=== PATIENT | male | born 1950 | race Caucasian/White ===

== ENCOUNTER → 2021-01-08 | Outpatient (CLI) | payer OTHER ==
[~2021-01-08] MED LIST: ACET325T14 PO; AMIT10TA PO; BUPR1TAB44 SL; CALCIUM CARBONATE PO; CINNAMON PO; FERR324T5 PO; FLUT9.9S NAS; GABA-827 PO; GLARGINE SC; LORA-247 PO; MAGNESIUM PO; METF500T17 PO; METH-639 PO; OMEP-110 PO; SEMA1PEN3 SC; SERT100T32 PO; SIMV20TA19 PO; TAMS-11 PO
[2021-01-08 15:10] LABS: BASOPHILS % (AUTO) 0 % (0-1); EOSINOPHILS % (AUTO) 31 % (1-7); LYMPHOCYTES % (AUTO) 26 % (22-44); MEAN CORPUSCULAR HEMOGLOBIN 29.2 pg (27.5-34.5); MEAN CORPUSCULAR HGB CONC 34.2 g/dL (33.2-36.2); MEAN PLATELET VOLUME 8.6 fL (7.4-10.4); MONOCYTES % (AUTO) 6 % (2-9); NEUTROPHILS % (AUTO) 38 % (42-75); PLATELET COUNT 168 x10^3/uL (130-400); RED BLOOD COUNT 4.37 x10^6/uL (4.38-5.82)
[2021-01-08 15:13] LABS: MICROSCOPIC NOT IND
[2021-01-08 15:14] LABS: ALBUMIN 3.8 g/dL (3.4-5.0); ANION GAP 7 mmol/L (5-15); CALCIUM 8.7 mg/dL (8.5-10.1); CHLORIDE 103 mmol/L (98-107)
[2021-01-08 15:17] LABS: ALANINE AMINOTRANSFERASE 23 U/L (12-78); ALKALINE PHOSPHATASE 97 U/L (45-117); BILIRUBIN,TOTAL 0.3 mg/dL (0.2-1.0); CREATININE 1.26 mg/dL (0.7-1.3); TOTAL PROTEIN 7.4 g/dL (6.4-8.2)
[2021-01-08 15:32] LABS: INTERNATIONAL NORMALIZED RATIO 0.98 (0.93-1.1); PROTHROMBIN TIME 10.5 Seconds (9.6-11.5)
[2021-01-08 15:36] LABS: MD SCAN
== END | disposition home or self-care (01) ==
LOC: STAR 13:14
PROVIDERS: ATTEND Neurological Surgery
DX: Z01.810 Encounter for preprocedural cardiovascular examination (principal); Z01.811 Encounter for preprocedural respiratory examination; Z01.812 Encounter for preprocedural laboratory examination; R94.31 Abnormal electrocardiogram [ECG] [EKG]; R82.90 Unspecified abnormal findings in urine; R79.1 Abnormal coagulation profile; M48.061 Spinal stenosis, lumbar region without neurogenic claudication; I49.3 Ventricular premature depolarization
CPT/HCPCS: 36415; 71046; 80053; 81003; 85025; 85610; 85730; 93005

== ENCOUNTER 2021-01-19 05:30 | Observation (INO) | payer OTHER ==
[~2021-01-19] VITALS: Ht 185.4 cm; Wt 104.0 kg
[2021-01-19] MEDS ORDERED: MIDAZOLAM 1 MG/ML, 2ML ONE (05:52)
[2021-01-19] MEDS ORDERED: FENTANYL PF 250 MCG/5ML ONE (05:53)
[2021-01-19] MEDS ORDERED: CHLORHEXIDINE 15 ML UDC PO ONE (06:00)
[2021-01-19] MEDS ORDERED: LACTATED RINGERS 1,000 ML IV SCH (06:00)
[2021-01-19] MEDS ORDERED: BUPIVACAINE/PF 0.5% ONE (06:24)
[2021-01-19] MEDS ORDERED: VANCOMYCIN 1,000 MG ONE (06:24)
[2021-01-19] MEDS ORDERED: EPINEPHRINE 1 MG/ML, 1ML ONE (06:24)
[2021-01-19] MEDS ORDERED: BACITRACIN 50,000 UNIT ONE (06:24)
[2021-01-19] MEDS ORDERED: KETAMINE 50 MG/ML, 10ML ONE (07:00)
[2021-01-19] MEDS ORDERED: NEOSTIGMINE 1 MG/ML, 10ML ONE (08:12)
[2021-01-19] MEDS ORDERED: PROPOFOL 10 MG/ML, 20ML ONE (08:12)
[2021-01-19] MEDS ORDERED: CEFAZOLIN 1,000 MG ONE (08:12)
[2021-01-19] MEDS ORDERED: GLYCOPYRROLATE 0.2MG/1ML, 5ML ONE (08:12)
[2021-01-19] MEDS ORDERED: ROCURONIUM 10MG/ML,5ML ONE (08:12)
[2021-01-19] MEDS ORDERED: DEXAMETHASONE 4 MG/ML, 1ML ONE (08:12)
[2021-01-19] MEDS ORDERED: ONDANSETRON 2MG/ML, 2ML ONE (08:12)
[2021-01-19] MEDS ORDERED: ONDANSETRON 2MG/ML, 2ML IVPush PRN (08:30)
[2021-01-19] MEDS ORDERED: BISACODYL 10 MG SUPP PR PRN (08:30)
[2021-01-19] MEDS ORDERED: ACETAMINOPHEN 325 MG TABLET PO PRN ×2 (08:30→09:00)
[2021-01-19] MEDS ORDERED: PHARMACY MAY ADJ FOR RENAL FX MC PRN (08:30)
[2021-01-19] MEDS ORDERED: KETOROLAC 30 MG/1 ML IVPush PRN (08:30)
[2021-01-19] MEDS ORDERED: ENOXAPARIN 40 MG/0.4 ML SQ SCH (08:30)
[2021-01-19] MEDS ORDERED: HYDROcodone/APAP 10/325 MG TABLET PO PRN (08:30)
[2021-01-19] MEDS ORDERED: LABETALOL 5MG/ML, 20ML IVPush PRN (08:30)
[2021-01-19] MEDS ORDERED: SENNA/DOCUSATE TABLET PO PRN (08:30)
[2021-01-19] MEDS ORDERED: KETOROLAC 30 MG/1 ML ONE (08:51)
[2021-01-19] MEDS ORDERED: FENTANYL PF 100 MCG/2ML IV PRN (09:00)
[2021-01-19] MEDS ORDERED: LORazepam 2 MG/ML, 1ML IVPush PRN (09:00)
[2021-01-19] MEDS ORDERED: OXYcodone 5 MG/5 ML ORAL.SOL UDC PO PRN (09:00)
[2021-01-19] MEDS ORDERED: MEPERIDINE/PF 25MG/0.5ML IVPush PRN (09:00)
[2021-01-19] MEDS ORDERED: METHOCARBAMOL 1,000 MG in DEXTROSE 5% 100 ML IV PRN (09:00)
[2021-01-19] MEDS ORDERED: PROMETHAZINE 25 MG/ML, 1ML IVPush PRN (09:00)
[2021-01-19] MEDS ORDERED: HYDROmorphone 1 MG/ML, 1ML INJ IVPush PRN (09:00)
[2021-01-19] MEDS: SODIUM CHLORIDE FLUSH 10ML SYR IVF SCH ×2 (09:00→20:33)
[2021-01-19 09:35] VITALS: BP 132/72
[2021-01-19] MEDS: BUPRENORPHINE/NALOXONE 2-0.5MG SL SCH ×3 (10:00→23:26)
[2021-01-19] MEDS ORDERED: DIPHENHYDRAMINE 25 MG CAPSULE PO PRN (10:00)
[2021-01-19] MEDS ORDERED: MORPHINE SULFATE 4 MG/ML, 1ML IVPush PRN (10:00)
[2021-01-19] MEDS: GABAPENTIN 400 MG CAPSULE PO SCH ×3 (11:26→20:32)
[2021-01-19] MEDS: TAMSULOSIN 0.4 MG CAP.ER.24H PO SCH (11:26)
[2021-01-19] MEDS: SERTRALINE 100MG TABLET PO SCH (11:26)
[2021-01-19] MEDS: LORATADINE 10 MG TABLET PO SCH (11:26)
[2021-01-19] MEDS: D5%-0.9% NACL+KCL 20MEQ 1,000 ML IV SCH ×2 (11:54→20:30)
[2021-01-19] MEDS: INSULIN REGULAR 100 UNITS/ML, 3ML VIAL SQ-INSULIN SCH ×3 (11:55→20:49)
[2021-01-19] MEDS: metFORMIN 500 MG TABLET PO SCH ×2 (12:00→16:47)
[2021-01-19 13:50] VITALS: BP 154/78
[2021-01-19] MEDS: CEFAZOLIN PMX 1GM/50ML 50 ML IVPB SCH ×2 (16:45→23:30)
[2021-01-19] MEDS: OMEPRAZOLE 20 MG CAPSULE.DR PO SCH (16:47)
[2021-01-19 18:42] VITALS: BP 141/65
[2021-01-19] MEDS: METHOCARBAMOL 750 MG TABLET PO PRN (20:49)
[2021-01-19] MEDS ORDERED: AMITRIPTYLINE 10 MG TABLET PO SCH (21:00)
[2021-01-19] MEDS ORDERED: SIMVASTATIN 20 MG TABLET PO SCH (21:00)
[2021-01-20 00:15] VITALS: BP 130/83
[2021-01-20 03:37] VITALS: BP 108/69
[2021-01-20] MEDS: INSULIN REGULAR 100 UNITS/ML, 3ML VIAL SQ-INSULIN SCH ×2 (06:07→11:39)
[2021-01-20] MEDS: D5%-0.9% NACL+KCL 20MEQ 1,000 ML IV SCH (06:07)
[2021-01-20] MEDS: OMEPRAZOLE 20 MG CAPSULE.DR PO SCH (06:08)
[2021-01-20 07:45] VITALS: BP 133/69
[2021-01-20] MEDS: SODIUM CHLORIDE FLUSH 10ML SYR IVF SCH (09:00)
[2021-01-20] MEDS: BUPRENORPHINE/NALOXONE 2-0.5MG SL SCH (09:04)
[2021-01-20] MEDS: TAMSULOSIN 0.4 MG CAP.ER.24H PO SCH (09:06)
[2021-01-20] MEDS: LORATADINE 10 MG TABLET PO SCH (09:06)
[2021-01-20] MEDS: SERTRALINE 100MG TABLET PO SCH (09:06)
[2021-01-20] MEDS: GABAPENTIN 400 MG CAPSULE PO SCH (09:06)
[2021-01-20] MEDS: metFORMIN 500 MG TABLET PO SCH (09:08)
[2021-01-20] MEDS ORDERED: ENOXAPARIN 40 MG/0.4 ML SQ SCH (10:30)
[2021-01-20] MEDS ORDERED: METH-640 PO (11:21)
[2021-01-20 12:00] VITALS: BP 125/67
[2021-01-20] MEDS: METHOCARBAMOL 750 MG TABLET PO PRN (15:12)
== END 2021-01-20 15:45 | disposition home or self-care (01) ==
LOC: OUT 05:30 → 4NE 09:35 → OUT 22:57 → INTOOBSV 22:58 → 4NE 22:58
PROVIDERS: ADMIT Neurological Surgery; ATTEND Neurological Surgery
DX: M48.062 Spinal stenosis, lumbar region with neurogenic claudication (principal); Z20.822 Contact with and (suspected) exposure to COVID-19; M51.16 Intervertebral disc disorders with radiculopathy, lumbar region; M47.26 Other spondylosis with radiculopathy, lumbar region; M51.37 Other intervertebral disc degeneration, lumbosacral region; I10 Essential (primary) hypertension; E11.9 Type 2 diabetes mellitus without complications; F32.9 Major depressive disorder, single episode, unspecified; K21.9 Gastro-esophageal reflux disease without esophagitis; E78.5 Hyperlipidemia, unspecified; G47.33 Obstructive sleep apnea (adult) (pediatric); Z79.82 Long term (current) use of aspirin; Z79.899 Other long term (current) drug therapy
CPT/HCPCS: 63056; 72100; 82962; 96361; 96365; 96366; 96372; 97161; G0378; J0171; J0572; J0690; J1100; J1650; J1815; J2250; J2405; J2704; J2710; J2800; J3010; J3370; J3480; J7120; S0020; U0003; U0005